=== PATIENT | female | born 1995 | race Caucasian/White ===

== ENCOUNTER → 2018-10-04 | Outpatient (REF) | payer OTHER ==
[2018-10-04 21:55] LABS: CHLAMYDIA DNA AMPLIFICATION NEGATIVE (NEGATIVE); GC DNA AMPLIFICATION NEGATIVE (NEGATIVE)
== END ==
LOC: M SFHCLERA 12:20
PROVIDERS: ATTEND Nurse Practitioner Family
DX: Z71.1 Person with feared health complaint in whom no diagnosis is made (principal); Z72.51 High risk heterosexual behavior
CPT/HCPCS: 81002; 81025; 87086; 87661; G0463

== ENCOUNTER → 2019-02-03 | Outpatient (REF) | payer OTHER ==
[2019-02-03 21:46] LABS: CHLAMYDIA DNA AMPLIFICATION NEGATIVE (NEGATIVE); GC DNA AMPLIFICATION NEGATIVE (NEGATIVE)
== END ==
LOC: M SFHCLERA 11:07
PROVIDERS: ATTEND Nurse Practitioner Family
DX: R30.0 Dysuria (principal)
CPT/HCPCS: 81002; 81025; 87088; 87186; 87661; G0463

== ENCOUNTER → 2020-12-27 | Outpatient (REF) | payer OTHER ==
[2020-12-27 17:13] LABS: APPEARANCE, URINE CLOUDY (CLEAR); BACTERIA, URINE AUTO 1+ (NEGATIVE); BILIRUBIN, URINE AUTO NEGATIVE (NEGATIVE); BLOOD, URINE BLOOD 3+ (NEGATIVE); COLOR, URINE YELLOW (YELLOW); GLUCOSE, URINE (UA) AUTO NEGATIVE (NEGATIVE); KETONE, URINE AUTO NEGATIVE (NEGATIVE); LEUKOCYTE ESTERASE, URINE AUTO 3+ (NEGATIVE); MUCUS, URINE SMALL (NEGATIVE); NITRITE, URINE AUTO NEGATIVE (NEGATIVE); PROTEIN, URINE AUTO 3+ mg/dL (NEGATIVE); RBC, URINE AUTO TNTC /HPF (0-3); SPECIFIC GRAVITY URINE AUTO 1.024 (1.002-1.035); SQUAMOUS EPITHELIAL CELL UR AU 6 /HPF (0-6); UROBILINOGEN, URINE AUTO 0.2 mg/dL (0.0-2.0); WBC, URINE AUTO TNTC /HPF (0-3)
[2020-12-27 19:59] LABS: GC DNA AMPLIFICATION NEGATIVE (NEGATIVE)
== END ==
LOC: M LAB REF 16:20
PROVIDERS: ATTEND Physician Assistant Medical
DX: N39.0 Urinary tract infection, site not specified (principal)

== ENCOUNTER → 2021-11-11 | Outpatient (REF) | payer OTHER ==
[2021-11-11 14:03] LABS: GC DNA AMPLIFICATION NEGATIVE (NEGATIVE)
== END ==
LOC: M LAB REF 12:02
PROVIDERS: ATTEND Physician Assistant
DX: N39.0 Urinary tract infection, site not specified (principal); Z20.2 Contact with and (suspected) exposure to infections with a predominantly sexual mode of transmission

== ENCOUNTER → 2022-05-26 | Outpatient (CLI) | payer OTHER ==
[2022-05-26 14:13] LABS: APPEARANCE, URINE MANUAL CLEAR (CLEAR); COLOR, URINE MANUAL YELLOW (YELLOW)
[2022-05-26 14:14] LABS: BILIRUBIN, URINE MANUAL 1+ (NEGATIVE); BLOOD URINE MANUAL POSITIVE (NEGATIVE); GLUCOSE, URINE (UA) MANUAL NEGATIVE (NEGATIVE); KETONE, URINE MANUAL NEGATIVE (NEGATIVE); LEUKOCYTE ESTERASE, URINE MAN NEGATIVE (NEGATIVE); NITRITE, URINE MANUAL NEGATIVE (NEGATIVE); PROTEIN, URINE MANUAL 1+ mg/dL (NEGATIVE); UROBILINOGEN, URINE MANUAL 4 MG mg/dl (NORMAL)
[2022-05-26 14:32] LABS: WBC, URINE 0-1 /hpf (0-3)
[2022-05-26 14:33] LABS: BACTERIA, URINE NONE SEEN; HYALINE CAST, URINE NONE SEEN /lpf (0-1); SQUAMOUS EPITHELIAL CELL URINE SMALL AMOUNT /hpf (SMALL AMT)
== END ==
LOC: M LAB 12:05
PROVIDERS: ATTEND Physician Assistant
DX: N39.0 Urinary tract infection, site not specified (principal); N91.2 Amenorrhea, unspecified

== ENCOUNTER 2022-06-05 16:04 | Emergency (ER) | payer OTHER ==
[~2022-06-05] VITALS: Ht 167.6 cm; Wt 104.6 kg
[2022-06-05 16:05] VITALS: BP 140/87
[2022-06-05 17:06] LABS: HEMATOCRIT 42.9 % (36.0-47.0); MEAN CORPUSCULAR HEMOGLOBIN 30.4 pg (27.0-33.0); MEAN CORPUSCULAR HGB CONC 32.6 g/dl (32.0-36.5); MEAN CORPUSCULAR VOLUME 93.3 fl (80.0-96.0); PLATELET COUNT, AUTOMATED 228 10^3/uL (150-450)
[2022-06-05 17:28] LABS: BLOOD UREA NITROGEN 13 MG/DL (9-23); CALCIUM LEVEL 9.1 MG/DL (8.5-10.1); CARBON DIOXIDE LEVEL 26 MMOL/L (20-31); CHLORIDE LEVEL 104 MMOL/L (98-107); CREATININE FOR GFR 0.84 MG/DL (0.55-1.30); GLOMERULAR FILTRATION RATE > 60.0 (>60); GLUCOSE, FASTING 83 MG/DL (60-100); POTASSIUM SERUM 4.5 MMOL/L (3.5-5.1); SODIUM LEVEL 138 MMOL/L (136-145)
[2022-06-05 19:30] LABS: GC DNA AMPLIFICATION NEGATIVE (NEGATIVE)
== END 2022-06-05 19:02 | disposition home or self-care (01) ==
LOC: M ED 16:04
DX: O20.0 Threatened abortion (principal); O20.8 Other hemorrhage in early pregnancy; Z87.440 Personal history of urinary (tract) infections; Z3A.01 Less than 8 weeks gestation of pregnancy; Z88.0 Allergy status to penicillin; Z88.5 Allergy status to narcotic agent

== ENCOUNTER → 2022-06-07 | Outpatient (CLI) | payer OTHER | LOC: M LAB 14:08 | PROVIDERS: ATTEND Emergency Medicine | DX: N93.9 Abnormal uterine and vaginal bleeding, unspecified (principal) ==

== ENCOUNTER → 2022-06-23 | Outpatient (CLI) | payer OTHER ==
[2022-06-23 17:08] LABS: HEMATOCRIT 40.9 % (36.0-47.0); HEMOGLOBIN 13.5 g/dl (12.0-15.5); MEAN CORPUSCULAR HEMOGLOBIN 30.6 pg (27.0-33.0); MEAN CORPUSCULAR VOLUME 92.7 fl (80.0-96.0); PLATELET COUNT, AUTOMATED 202 10^3/uL (150-450); RED BLOOD COUNT 4.41 10^6/uL (4.00-5.40); WHITE BLOOD COUNT 10.7 10^3/uL (4.0-10.0)
[2022-06-23 17:35] LABS: FREE T4 1.23 NG/DL (0.89-1.76)
[2022-06-23 18:07] LABS: HIV 1&2 SCREEN CENTAUR NEGATIVE (NEGATIVE)
[2022-06-23 18:38] LABS: GC DNA AMPLIFICATION NEGATIVE (NEGATIVE)
== END ==
LOC: M PLALAB 15:01
PROVIDERS: ATTEND Advanced Practice Midwife
DX: Z34.91 Encounter for supervision of normal pregnancy, unspecified, first trimester (principal)

== ENCOUNTER → 2022-06-27 | Outpatient (REF) | payer OTHER ==
[2022-06-27 12:38] LABS: APPEARANCE, URINE HAZY (CLEAR); BACTERIA, URINE AUTO 3+ (NEGATIVE); BILIRUBIN, URINE AUTO NEGATIVE (NEGATIVE); BLOOD, URINE BLOOD NEGATIVE (NEGATIVE); COLOR, URINE YELLOW (YELLOW); GLUCOSE, URINE (UA) AUTO NEGATIVE (NEGATIVE); KETONE, URINE AUTO NEGATIVE (NEGATIVE); LEUKOCYTE ESTERASE, URINE AUTO 2+ (NEGATIVE); MUCUS, URINE SMALL (NEGATIVE); NITRITE, URINE AUTO NEGATIVE (NEGATIVE); PROTEIN, URINE AUTO 1+ mg/dL (NEGATIVE); RBC, URINE AUTO 1 /HPF (0-3); SPECIFIC GRAVITY URINE AUTO 1.018 (1.002-1.035); SQUAMOUS EPITHELIAL CELL UR AU 1 /HPF (0-6); WBC, URINE AUTO 40 /HPF (0-3)
== END ==
LOC: M LAB REF 12:16
PROVIDERS: ATTEND Physician Assistant
DX: N39.0 Urinary tract infection, site not specified (principal)

== ENCOUNTER → 2022-07-17 | Outpatient (CLI) | payer OTHER | LOC: M PLALAB 10:35 | PROVIDERS: ATTEND Advanced Practice Midwife | DX: Z34.82 Encounter for supervision of other normal pregnancy, second trimester (principal) ==

== ENCOUNTER → 2022-07-31 | Outpatient (REF) | payer OTHER ==
[2022-07-31 18:31] LABS: TOTAL PROTEIN,RANDOM URINE 28.7 MG/DL (0.0-14.0)
[2022-07-31 18:36] LABS: CREATININE,RANDOM URINE 50.4 MG/DL
== END ==
LOC: M PLALAB 15:42
PROVIDERS: ATTEND Obstetrics & Gynecology
DX: Z87.59 Personal history of other complications of pregnancy, childbirth and the puerperium (principal)
CPT/HCPCS: 82570; 84156; G0463

== ENCOUNTER → 2022-09-05 | Outpatient (CLI) | payer OTHER | LOC: M WHC 14:28 | PROVIDERS: ATTEND Obstetrics & Gynecology | DX: O32.1XX0 Maternal care for breech presentation, not applicable or unspecified (principal); Z3A.19 19 weeks gestation of pregnancy ==

== ENCOUNTER → 2022-10-31 | Outpatient (CLI) | payer MEDICAID ==
[2022-10-31 14:02] LABS: LDH LACTATE DEHYDROGENASE 129 U/L (120-246)
[2022-10-31 14:03] LABS: ALT/SGPT 12 U/L (7.0-40); AST/SGOT 11 U/L (<34); BILIRUBIN,TOTAL 0.5 MG/DL (0.3-1.2); GLOMERULAR FILTRATION RATE > 60.0 (>60)
[2022-10-31 14:04] LABS: HEMATOCRIT 39.9 % (36.0-47.0); MEAN CORPUSCULAR HEMOGLOBIN 31.3 pg (27.0-33.0); MEAN CORPUSCULAR HGB CONC 32.6 g/dl (32.0-36.5); MEAN CORPUSCULAR VOLUME 95.9 fl (80.0-96.0); PLATELET COUNT, AUTOMATED 179 10^3/uL (150-450); RED BLOOD COUNT 4.16 10^6/uL (4.00-5.40); WHITE BLOOD COUNT 9.7 10^3/uL (4.0-10.0)
[2022-10-31 14:05] LABS: FREE T4 0.97 NG/DL (0.89-1.76); THYROID STIMULATING HORMONE 1.458 uIU/ML (0.55-4.78)
[2022-10-31 14:09] LABS: URIC ACID 6.2 MG/DL (3.1-7.8)
== END ==
LOC: M PLALAB 10:41
PROVIDERS: ATTEND Advanced Practice Midwife
DX: O99.282 Endocrine, nutritional and metabolic diseases complicating pregnancy, second trimester (principal)

== ENCOUNTER → 2022-11-09 | Outpatient (CLI) | payer MEDICAID | LOC: M PLALAB 09:40 | PROVIDERS: ATTEND Advanced Practice Midwife | DX: O99.282 Endocrine, nutritional and metabolic diseases complicating pregnancy, second trimester (principal) ==

== ENCOUNTER → 2022-12-27 | Outpatient (REF) | payer OTHER, MEDICAID ==
[~2022-12-27] MED LIST: ACET-683 PO; COLA100C5 PO; IBUP-1022 PO; OXYC-517 PO; PREN1TAB11 PO
== END ==
LOC: M PLALAB 11:26
PROVIDERS: ATTEND Obstetrics & Gynecology
DX: Z34.80 Encounter for supervision of other normal pregnancy, unspecified trimester (principal)

== ENCOUNTER 2023-01-11 01:09 | Inpatient (IN) | payer OTHER ==
[2023-01-11] VITALS (13 sets, daily range): BP systolic 118–151; BP diastolic 65–84; TEMP 98.8; O2SAT 94–98
[~2023-01-11] VITALS: Ht 167.6 cm; Wt 119.1 kg
[2023-01-11] MEDS ORDERED: LACTATED RINGER'S 1000 ML IV ONE (02:20)
[2023-01-11] MEDS ORDERED: MEPERIDINE 50 MG/ML 1ML VIAL IV ONE ×3 (03:00→12:00)
[2023-01-11 03:50] LABS: HEMATOCRIT 36.4 % (36.0-47.0); HEMOGLOBIN 12.2 g/dl (12.0-15.5); MEAN CORPUSCULAR HEMOGLOBIN 31.3 pg (27.0-33.0); MEAN CORPUSCULAR HGB CONC 33.5 g/dl (32.0-36.5); MEAN CORPUSCULAR VOLUME 93.3 fl (80.0-96.0); PLATELET COUNT, AUTOMATED 130 10^3/uL (150-450); WHITE BLOOD COUNT 10.2 10^3/uL (4.0-10.0)
[2023-01-11] MEDS ORDERED: PREN1TAB11 PO (03:50)
[2023-01-11 04:06] LABS: LIPASE 33 U/L (12-53)
[2023-01-11 04:07] LABS: LDH LACTATE DEHYDROGENASE 174 U/L (120-246)
[2023-01-11 04:08] LABS: AMYLASE 94 U/L (30-118)
[2023-01-11 04:09] LABS: ALT/SGPT < 9 U/L (7.0-40); AST/SGOT < 8 U/L (<34); BILIRUBIN,TOTAL 0.4 MG/DL (0.3-1.2); CREATININE FOR GFR 0.61 MG/DL (0.55-1.30); GLOMERULAR FILTRATION RATE > 60.0 (>60)
[2023-01-11] MEDS: LR 1,000 ML IV SCH ×2 (04:25→06:36)
[2023-01-11] MEDS ORDERED: PROMETHAZINE 25MG/ML 1ML VIAL IV ONE (05:00)
[2023-01-11 05:23] LABS: URIC ACID 6.4 MG/DL (3.1-7.8)
[2023-01-11] MEDS ORDERED: PANTOPRAZOLE 40MG VIAL IV STA (07:48)
[2023-01-11] MEDS ORDERED: MEPERIDINE 50 MG/ML 1ML VIAL IM ONE (08:00)
[2023-01-11 09:44] LABS: INR 1.01
[2023-01-11 09:45] LABS: PARTIAL THROMBOPLASTIN TIME 27.8 SECONDS (24.8-34.2)
[2023-01-11 10:50] LABS: TOTAL PROTEIN,RANDOM URINE 58.5 MG/DL (0.0-14.0)
[2023-01-11 10:55] LABS: CREATININE,RANDOM URINE 152.9 MG/DL
[2023-01-11] MEDS ORDERED: NALBUPHINE HCL (10 MG/ML) 100MG/10ML MDV IV STA (12:46)
[2023-01-11 15:00] LABS: HEMATOCRIT 37.2 % (36.0-47.0); HEMOGLOBIN 12.5 g/dl (12.0-15.5); MEAN CORPUSCULAR HEMOGLOBIN 30.9 pg (27.0-33.0); MEAN CORPUSCULAR HGB CONC 33.6 g/dl (32.0-36.5); MEAN CORPUSCULAR VOLUME 92.1 fl (80.0-96.0); PLATELET COUNT, AUTOMATED 148 10^3/uL (150-450); RED BLOOD COUNT 4.04 10^6/uL (4.00-5.40)
[2023-01-11] MEDS ORDERED: LACTATED RINGER'S 1000 ML IV STA (15:49)
[2023-01-11] MEDS ORDERED: METHYLERGONOVINE MALEATE 0.2MG/ML 1ML VIAL IM PRN (15:50)
[2023-01-11] MEDS ORDERED: BICITRA 30ML SOLN UDC PO ONE (15:50)
[2023-01-11] MEDS ORDERED: LR 1,000 ML IV SCH ×2 (15:50→18:40)
[2023-01-11] MEDS ORDERED: ceFAZolin SOD 2 GM in IV 1 EA IV ONE (15:50)
[2023-01-11] MEDS ORDERED: TRANEXAMIC ACID INJection 1,000 MG in NS 100 ML IV PRN (15:50)
[2023-01-11] MEDS ORDERED: CARBOPROST TROMETHAMINE 250 MCG/ML AMP IM PRN (15:50)
[2023-01-11] MEDS ORDERED: OXYTOCIN DRIP 30 UNITS in IV 1 EA IV PRN ×4 (15:50)
[2023-01-11] MEDS ORDERED: ONDANSETRON 4MG 2ML VIAL As Ordered ONE (16:13)
[2023-01-11] MEDS ORDERED: OXYTOCIN INJ 10UNITS/ML 1ML VIAL As Ordered ONE (16:13)
[2023-01-11] MEDS ORDERED: KETOROLAC 60MG 2ML VIAL As Ordered ONE (16:13)
[2023-01-11] MEDS ORDERED: MORPHINE PRES-FREE INJ 10 MG/10 ML VIAL As Ordered ONE (16:13)
[2023-01-11] MEDS ORDERED: fentaNYL 100 MCG/2 ML INJECTION As Ordered ONE ×2 (16:13→18:51)
[2023-01-11] MEDS ORDERED: PHENYLephrine 500MCG 5ML (100MCG/ML) SYRINGE As Ordered ONE (17:18)
[2023-01-11] MEDS ORDERED: RHOGAM 300MCG (1500IU) INJ IM SCH (18:25)
[2023-01-11] MEDS ORDERED: SIMETHICONE 80MG CHEW TAB PO PRN (18:25)
[2023-01-11] MEDS ORDERED: oxyCODONE 5MG TAB PO PRN ×3 (18:25→18:40)
[2023-01-11] MEDS ORDERED: METOCLOPRAMIDE INJ 10MG/2ML VIAL IV PRN ×2 (18:25→18:40)
[2023-01-11] MEDS ORDERED: ONDANSETRON 4MG 2ML VIAL IV PRN ×2 (18:25→18:40)
[2023-01-11] MEDS ORDERED: DOCUSATE SODIUM 100MG CAPSULE PO PRN (18:25)
[2023-01-11] MEDS ORDERED: fentaNYL 100 MCG/2 ML INJECTION IV PRN (18:40)
[2023-01-11] MEDS ORDERED: MEPERIDINE 25 MG/ML 1ML VIAL IV PRN (18:40)
[2023-01-11] MEDS ORDERED: oxyCODONE 5MG TAB As Ordered ONE (19:17)
[2023-01-11] MEDS: ACETAMINOPHEN 500 MG TAB PO SCH (20:14)
[2023-01-12] MEDS: KETOROLAC 30 MG/ML 1ML VIAL IV SCH ×3 (00:25→13:09)
[2023-01-12] MEDS: ACETAMINOPHEN 500 MG TAB PO SCH ×4 (00:30→18:20)
[2023-01-12 02:00] VITALS: BP 159/67; O2SAT 95
[2023-01-12 05:52] VITALS: BP 137/82; O2SAT 96
[2023-01-12 07:00] LABS: HEMATOCRIT 32.7 % (36.0-47.0); HEMOGLOBIN 10.8 g/dl (12.0-15.5); MEAN CORPUSCULAR HEMOGLOBIN 31.3 pg (27.0-33.0); MEAN CORPUSCULAR VOLUME 94.8 fl (80.0-96.0); PLATELET COUNT, AUTOMATED 141 10^3/uL (150-450); RED BLOOD COUNT 3.45 10^6/uL (4.00-5.40); WHITE BLOOD COUNT 11.9 10^3/uL (4.0-10.0)
[2023-01-12] MEDS ORDERED: ACET-683 PO (07:31)
[2023-01-12] MEDS ORDERED: COLA100C5 PO (07:31)
[2023-01-12] MEDS ORDERED: OXYC-517 PO (07:31)
[2023-01-12] MEDS ORDERED: IBUP-1022 PO (07:31)
[2023-01-12 08:00] VITALS: BP 136/76; O2SAT 100
[2023-01-12] MEDS: PRENATAL VITAMINS CHEWABLE TABLET PO SCH (08:09)
[2023-01-12 18:00] VITALS: BP 136/81; O2SAT 99
[2023-01-12] MEDS: IBUPROFEN 600MG TAB PO SCH (21:21)
[2023-01-12 22:00] VITALS: BP 134/86; O2SAT 98
[2023-01-13] MEDS: IBUPROFEN 600MG TAB PO SCH ×4 (01:54→20:07)
[2023-01-13] MEDS: ACETAMINOPHEN 500 MG TAB PO SCH ×4 (01:55→18:39)
[2023-01-13 02:00] VITALS: BP 139/89; O2SAT 98
[2023-01-13 05:57] VITALS: BP 143/92; O2SAT 98
[2023-01-13] MEDS ORDERED: MEASLES,MUMPS,RUBELLA VACCINE INJ (MMR-II) SC.IMMUN ONE (09:00)
[2023-01-13] MEDS: PRENATAL VITAMINS CHEWABLE TABLET PO SCH (09:28)
[2023-01-13 10:00] VITALS: BP 135/72; O2SAT 97
[2023-01-13 14:00] VITALS: BP 134/75; O2SAT 100
[2023-01-13 18:00] VITALS: BP 141/97; O2SAT 100
[2023-01-13 22:10] VITALS: BP 137/79; O2SAT 99
[2023-01-14] MEDS: IBUPROFEN 600MG TAB PO SCH ×2 (02:45→09:54)
[2023-01-14] MEDS: ACETAMINOPHEN 500 MG TAB PO SCH ×2 (02:45→07:30)
[2023-01-14 05:53] VITALS: BP 142/76; O2SAT 100
[2023-01-14] MEDS: PRENATAL VITAMINS CHEWABLE TABLET PO SCH (09:53)
== END 2023-01-14 15:15 | disposition home or self-care (01) | DRG 540 ==
LOC: M LDO 01:09 → M LDI 08:18 → OBSVTOIN 08:18 → M OBS 20:00
PROVIDERS: ADMIT Advanced Practice Midwife; ATTEND Advanced Practice Midwife
PROC: 10D00Z1 Extraction of Products of Conception, Low, Open Approach (ICD-10-PCS; principal; 2023-01-11 16:03)
DX: O45.8X3 Other premature separation of placenta, third trimester (principal); Z88.0 Allergy status to penicillin; Z37.0 Single live birth; Z3A.37 37 weeks gestation of pregnancy; Z88.5 Allergy status to narcotic agent

== ENCOUNTER → 2023-03-28 | Outpatient (REF) | payer OTHER ==
[2023-03-28 16:09] LABS: APPEARANCE, URINE HAZY (CLEAR); BACTERIA, URINE AUTO NEGATIVE (NEGATIVE); BILIRUBIN, URINE AUTO NEGATIVE (NEGATIVE); BLOOD, URINE BLOOD 3+ (NEGATIVE); COLOR, URINE YELLOW (YELLOW); GLUCOSE, URINE (UA) AUTO NEGATIVE (NEGATIVE); KETONE, URINE AUTO NEGATIVE (NEGATIVE); LEUKOCYTE ESTERASE, URINE AUTO 2+ (NEGATIVE); MUCUS, URINE SMALL (NEGATIVE); NITRITE, URINE AUTO NEGATIVE (NEGATIVE); PROTEIN, URINE AUTO 2+ mg/dL (NEGATIVE); RBC, URINE AUTO TNTC /HPF (0-3); SPECIFIC GRAVITY URINE AUTO 1.026 (1.002-1.035); SQUAMOUS EPITHELIAL CELL UR AU 0 /HPF (0-6); UROBILINOGEN, URINE AUTO 0.2 mg/dL (0.0-2.0); WBC, URINE AUTO 53 /HPF (0-3)
== END ==
LOC: M LAB REF 15:23
PROVIDERS: ATTEND Physician Assistant
DX: N39.0 Urinary tract infection, site not specified (principal)

== ENCOUNTER → 2023-09-24 | Outpatient (CLI) | payer OTHER ==
[2023-09-24 16:00] LABS: HEMATOCRIT 39.8 % (36.0-47.0); HEMOGLOBIN 13.3 g/dl (12.0-15.5); MEAN CORPUSCULAR HEMOGLOBIN 31.1 pg (27.0-33.0); MEAN CORPUSCULAR HGB CONC 33.4 g/dl (32.0-36.5); MEAN CORPUSCULAR VOLUME 93.2 fl (80.0-96.0); PLATELET COUNT, AUTOMATED 180 10^3/uL (150-450); RED BLOOD COUNT 4.27 10^6/uL (4.00-5.40); WHITE BLOOD COUNT 8.8 10^3/uL (4.0-10.0)
[2023-09-24 16:20] LABS: TOTAL PROTEIN,RANDOM URINE 42.1 MG/DL (0.0-14.0)
[2023-09-24 16:24] LABS: CREATININE,RANDOM URINE 83.5 MG/DL
[2023-09-24 16:26] LABS: THYROID STIMULATING HORMONE 3.355 uIU/ML (0.55-4.78)
[2023-09-24 16:32] LABS: ALBUMIN 3.1 G/DL (3.2-5.2); ALKALINE PHOSPHATASE 60 U/L (46-116); ALT/SGPT 18 U/L (7.0-40); AST/SGOT 10 U/L (<34); BILIRUBIN,TOTAL 0.4 MG/DL (0.3-1.2); BLOOD UREA NITROGEN 7 MG/DL (9-23); CALCIUM LEVEL 8.8 MG/DL (8.5-10.1); CARBON DIOXIDE LEVEL 25 MMOL/L (20-31); CHLORIDE LEVEL 108 MMOL/L (98-107); CREATININE FOR GFR 0.64 MG/DL (0.55-1.30); GLOMERULAR FILTRATION RATE > 60.0 (>60); GLUCOSE, FASTING 100 MG/DL (60-100); POTASSIUM SERUM 4.2 MMOL/L (3.5-5.1); SODIUM LEVEL 139 MMOL/L (136-145); TOTAL PROTEIN 6.4 G/DL (5.7-8.2)
[2023-09-24 16:33] LABS: FREE T4 0.97 NG/DL (0.89-1.76)
[2023-09-24 16:52] LABS: HIV 1&2 SCREEN NEGATIVE (NEGATIVE)
[2023-09-24 16:59] LABS: HEPATITIS C VIRUS ABY INDEX 0.03 INDEX (<0.8)
[2023-09-24 17:16] LABS: GC DNA AMPLIFICATION NEGATIVE (NEGATIVE)
== END ==
LOC: M PLALAB 13:32
PROVIDERS: ATTEND Obstetrics & Gynecology
DX: Z34.91 Encounter for supervision of normal pregnancy, unspecified, first trimester (principal); Z3A.00 Weeks of gestation of pregnancy not specified

== ENCOUNTER → 2023-10-31 | Outpatient (REF) | payer OTHER ==
[2023-11-01 11:27] LABS: TOTAL PROTEIN 24 HOUR URINE 403.2 MG/24HR (50-80); URINE TOTAL PROTEIN 50.4 MG/DL (0-14)
== END ==
LOC: M SFHCWAGY 09:36
PROVIDERS: ATTEND Obstetrics & Gynecology
DX: O12.10 Gestational proteinuria, unspecified trimester (principal)